=== PATIENT | female | born 1975 | race Caucasian/White ===

== ENCOUNTER → 2019-07-12 10:16 | Outpatient (CLI) | payer OTHER, SELFPAY ==
--- NOTE | 2019-07-12 10:18 | DI.US.S_ITS ---
ULTRASOUND OF LEFT BREAST AND AXILLA: 07/12/2019 CLINICAL: Palpable left breast lump. Comparison is made to exams dated: 06/29/2009 mammogram, 07/12/2019 mammogram, and 06/29/2009 [facility]. Color flow and real-time ultrasound of the left breast axilla were performed. Amado scale images of the real-time examination were reviewed. There are benign normal lymph nodes in the left breast. There is a 0.4 cm x 0.7 cm x 0.3 cm irregular intraductal mass in the left breast at 6 o'clock anterior depth. This irregular intraductal mass is hypoechoic. This correlates as palpated, with mammography findings, and area of clinical concern. Color flow imaging demonstrates that there is no vascularity present. No significant abnormalities were seen sonographically in the left axilla. IMPRESSION: SUSPICIOUS OF MALIGNANCY The 0.4 cm x 0.7 cm x 0.3 cm irregular intraductal mass in the left breast may represent an intraductal papilloma and is suspicious of malignancy. An ultrasound guided biopsy is recommended. Findings and recommendations were discussed with the patient by Dr. Ruano during today's visit. This exam was interpreted at Station ID: [id number]. Electronically Signed By: Mina Mike M.D. aty/:07/12/2019 13:31:11 letter sent: Biopsy Required Ultrasound BI-RADS: 4 Suspicious for malignancy
--- NOTE | 2019-07-12 10:18 | DI.MG.S_ITS ---
BILATERAL DIGITAL DIAGNOSTIC MAMMOGRAM 3D/2D: 07/12/2019 CLINICAL: Left breast lump. Comparison is made to exam [facility]: [facility]. There are scattered fibroglandular elements in both breasts. There are benign normal lymph nodes in both breasts. There is a 0.8 cm irregular low density asymmetry in the left breast at 6 o'clock anterior depth. This is more prominent and correlates as palpated and with area of clinical concern. No other significant masses, calcifications, or other findings are seen in either breast. IMPRESSION: INCOMPLETE: NEEDS ADDITIONAL IMAGING EVALUATION The 0.8 cm irregular low density asymmetry in the left breast is indeterminate. An ultrasound is recommended for further evaluation and is scheduled to immediately follow this study. This exam was interpreted at Station ID: [id number]. NOTE: For mammograms, a report in lay terms will be sent to the patient. Approximately 15% of breast malignancies will not be visualized mammographically. In the management of a palpable breast mass, a negative mammogram must not discourage biopsy of a clinically suspicious lesion. Electronically Signed By: Mina Mike M.D. aty/:07/12/2019 11:12:51 ACR BI-RADS Category 0: Incomplete [id number]
== END ==
DX: R92.8 Other abnormal and inconclusive findings on diagnostic imaging of breast (principal); N63.25 Unspecified lump in the left breast, overlapping quadrants; N64.4 Mastodynia
CPT/HCPCS: 76642; 77066; G0279

== ENCOUNTER → 2019-07-31 09:09 | Outpatient (CLI) | payer OTHER, SELFPAY ==
--- NOTE | 2019-07-31 | PATH_ITS ---
[facility] Accession Number: [id number] . 01 Material submitted: . breast - LEFT BREAST MASS . 01 Diagnosis: Left Breast Mass, Excision: Intraductal papilloma with sclerosis and focal microcalcifications. Background breast parenchyma with stromal fibrosis, cystic duct dilatation, and mild chronic inflammation with focal microcalcifications. Negative for atypia, carcinoma in situ and malignancy. MRV 08/02/2019 0952 Local . 01 Electronically signed: . Lenora Hodges MD, Pathologist NPI- [id number] . 01 Gross description: . Received one formalin-filled container, labeled with the patient's name and designated left breast mass. The specimen is received with a plastic filter in container, sample loose in container and consists of multiple pieces of yellow-rivera soft tissue which range in size from less than 0.1 cm to 1.4 x 0.4 x 0.4 cm. The specimen is filtered and entirely submitted in one cassette. Collection date: 07/31/19. No collection time per container. Possible collection time: 10:20 per requisition. Total fixation time: Approximately 12 hours. ([id number]) /Geovani 08/01/2019 0214 Local . 01 Pathologist provided ICD-10: N63.10, D24.1 . 01 CPT . 598916 Performed at: [address] [facility] [address], [place], [place] [id number] MD Phillip Galindo MD Phone: [phone]
--- NOTE | 2019-07-31 | DI.MG.S_ITS ---
UNILATERAL LEFT DIGITAL DIAGNOSTIC MAMMOGRAM POST-NEEDLE BIOPSY: 07/31/2019 CLINICAL: Left breast mass. Comparison is made to exams dated: 07/12/2019 mammogram and 06/29/2009 mammogram - [facility]. There are scattered fibroglandular elements in left breast. There is a marker clip in the appropriate position in the left breast at 5 o'clock anterior depth. This marker clip placement is at the biopsy site. IMPRESSION: POST PROCEDURE MAMMOGRAM FOR MARKER PLACEMENT There was a successful marker clip placement in the left breast anterior depth. This exam was interpreted at Station ID: [id number]. NOTE: For mammograms, a report in lay terms will be sent to the patient. Approximately 15% of breast malignancies will not be visualized mammographically. In the management of a palpable breast mass, a negative mammogram must not discourage biopsy of a clinically suspicious lesion. Electronically Signed By: Jason blandon/:07/31/2019 17:07:26 ACR BI-RADS Category Post-procedure mammogram for marker placement
--- NOTE | 2019-07-31 09:10 | DI.US.S_ITS ---
ULTRASOUND GUIDED BIOPSY LEFT BREAST USING VACUUM DEVICE WITH MARKING DEVICE INSERTED: 07/31/2019 CLINICAL: Left breast mass. PATIENT CONSENT: Risks (minor bleeding, infection, vasovagal reaction and repeat procedure), benefits and alternatives were explained to the patient and written informed consent was obtained. Correlation is made to exams dated: 07/12/2019 ultrasound, 07/12/2019 mammogram, 06/29/2009 mammogram, and 06/29/2009 [facility]. An ultrasound guided biopsy using real-time ultrasound was performed for the irregular shaped mass located in the left breast at 5 o'clock middle depth. The skin was prepped in the usual manner. The abnormality was approached from the lateral aspect. A biopsy needle was placed adjacent to the abnormality under ultrasound guidance. Once the needle was documented to be in the correct location, three specimens were obtained using the Mammotome biopsy system. A clip was inserted into the biopsy cavity. The specimens were sent to the laboratory for pathological analysis. IMPRESSION: ULTRASOUND GUIDED BIOPSY HIGH RISK BENIGN Ultrasound guided biopsy of the mass in the left breast at 5 o'clock middle depth was successful. Pathology indicates intraductal papilloma with sclerosis, and micro-calcifications and no atypia present. Pathology results are concordant with imaging findings. Surgical consult for excision is recommended. This exam was interpreted at Station ID: [id number]. Jason blandon,sundeep/:08/05/2019 19:12:01
== END ==
DX: D24.2 Benign neoplasm of left breast (principal); N60.22 Fibroadenosis of left breast; N60.42 Mammary duct ectasia of left breast
CPT/HCPCS: 19083; 77065

== ENCOUNTER → 2020-08-28 15:49 | Outpatient (CLI) | payer OTHER, SELFPAY ==
[2020-08-28] MEDS: COVID-19 VACC, Ad26(JANSSEN)/PF 0.5 ML IM (15:53)
== END ==
PROVIDERS: Visit Provider Internal Medicine
DX: Z23 Encounter for immunization (principal)
CPT/HCPCS: 0031A; 91303

== ENCOUNTER → 2020-11-28 14:09 | Outpatient (CLI) | payer OTHER, SELFPAY ==
--- NOTE | 2020-11-28 14:10 | DI.MG.S_ITS ---
BILATERAL DIGITAL SCREENING MAMMOGRAM 3D/2D WITH CAD: 11/28/2020 CLINICAL: Routine screening. Family history of breast cancer. Comparison is made to exams dated: 07/31/2019 mammogram, 07/12/2019 mammogram, and 06/29/2009 mammogram - [facility]. There are scattered fibroglandular elements in both breasts. Current study was also evaluated with a Computer Aided Detection (CAD) system. There is a biopsy clip in the left breast. No significant masses, calcifications, or other findings are seen in either breast. There has been no significant interval change. IMPRESSION: NEGATIVE There is no mammographic evidence of malignancy. A 1 year screening mammogram is recommended. This exam was interpreted at Station ID: [id number]. NOTE: For mammograms, a report in lay terms will be sent to the patient. Approximately 15% of breast malignancies will not be visualized mammographically. In the management of a palpable breast mass, a negative mammogram must not discourage biopsy of a clinically suspicious lesion. Electronically Signed By: Krysten urbano/alayna:11/30/2020 08:58:22 letter sent: Normal Exam ACR BI-RADS Category 1: Negative [id number]
== END ==
PROVIDERS: PCP Family Medicine; Referring Provider Family Medicine; Visit Provider Family Medicine
DX: Z12.31 Encounter for screening mammogram for malignant neoplasm of breast (principal); Z80.3 Family history of malignant neoplasm of breast
CPT/HCPCS: 77063; 77067

== ENCOUNTER → 2024-09-19 16:19 | Outpatient (CLI) | payer OTHER, SELFPAY ==
--- NOTE | 2024-09-19 16:21 | DI.MG.S_ITS ---
MM screening mammo BI: 09/19/2024. BI-RADS: 2 CLINICAL: 49-year old female for bilateral screening mammogram. Tyrer-Cuzick lifetime risk of 8.6%. Current reported family history of breast cancer: mother. The patient had a prior left breast biopsy. PRIOR EXAMS 11/28/2020, 07/31/2019, 07/12/2019. MAMMOGRAPHY TECHNIQUE: 2D and 3D (tomosynthesis) digital mammographic views obtained, with additional images as needed for full coverage. Current study was also evaluated with a Computer Aided Detection (CAD) system. DENSITY B. There are scattered areas of fibroglandular density. MAMMOGRAPHY FINDINGS Right: No suspicious mass, asymmetry, microcalcification, or other abnormality seen. No significant change from comparison. Left: Biopsy marker present on the left. There are no suspicious masses, calcifications, or other findings in the breast. No significant change from comparison. IMPRESSION: Right * No evidence of malignancy. Left * No evidence of malignancy with benign findings. RECOMMENDATIONS Bilateral * Annual screening mammography. OVERALL ASSESSMENT CATEGORY BI-RADS-2: Benign. [employer] recommends annual screening mammography beginning at age 40 for women with average risk of breast cancer. ELECTRONICALLY SIGNED: Krysten Packer M.D. on 09/23/2024 at 12:03:34 PM PT Interpreting Station ID: [id number]
== END ==
PROVIDERS: PCP Family Medicine; Referring Provider Family Medicine; Visit Provider Family Medicine
DX: Z12.31 Encounter for screening mammogram for malignant neoplasm of breast (principal); Z80.3 Family history of malignant neoplasm of breast
CPT/HCPCS: 77063; 77067